=== PATIENT | male | born 1995 | race Caucasian/White ===

== ENCOUNTER 2019-04-23 15:51 | Emergency (ER) | payer OTHER ==
[~2019-04-23] VITALS: Ht 172.7 cm; Wt 74.1 kg
[2019-04-23] MEDS ORDERED: IBUPROFEN 800 MG TAB PO ONE (17:00)
[2019-04-23] MEDS ORDERED: NS 1,000 ML IV ONE (17:00)
[2019-04-23] MEDS ORDERED: methylPREDNISolone INJ 125 MG/2 ML VIAL (J2930) IV ONE (17:00)
[2019-04-23] MEDS ORDERED: ISOVUE-370 76% 100ML VIAL (Q9967) As Ordered ONE (17:22)
[2019-04-23 17:31] LABS: HEMATOCRIT 40.6 % (42.0-52.0); HEMOGLOBIN 13.9 g/dl (13.5-17.5); MEAN CORPUSCULAR HEMOGLOBIN 30.3 pg (27.0-33.0); MEAN CORPUSCULAR HGB CONC 34.2 g/dl (32.0-36.5); MEAN CORPUSCULAR VOLUME 88.5 fl (80.0-96.0); PLATELET COUNT, AUTOMATED 130 10^3/uL (150-450); RED BLOOD COUNT 4.59 10^6/uL (4.30-6.10); WHITE BLOOD COUNT 12.2 10^3/uL (4.0-10.0)
--- NOTE | 2019-04-23 17:48 | REPVR ---
PROCEDURE INFORMATION: Exam: CT Neck With Contrast Exam date and time: 04/23/2019 4:55 PM Age: 23 years old Clinical history: Other: Bilat swelling; Additional info: Large swelling to lawanda neck, muffled voice TECHNIQUE: Imaging protocol: Computed tomography images of the neck with intravenous contrast. Radiation optimization: All CT scans at this facility use at least one of these dose optimization techniques: automated exposure control; mA and/or kV adjustment per patient size (includes targeted exams where dose is matched to clinical indication); or iterative reconstruction. Contrast material: ISOVUE 370; Contrast volume: 75 ml; Contrast route: IV; COMPARISON: No relevant prior studies available. FINDINGS: Sinuses: Sinuses/nasal cavity: Inflammatory changes in the ethmoid sinuses, left greater than right. Inflammatory changes in the sphenoid sinuses. Soft tissue density demonstrated in the posterior aspect of the left nasal cavity may represent a polyp or boggy mucosa. Nasopharynx: Unremarkable. Oropharynx: Bilaterally enlarged and edematous tonsillar pillars consistent with adenopathy. Narrow hypopharyngeal airway secondary to bilateral compression from enlarged tonsillar pillars. No well-defined abscess demonstrated at this time. Hypopharynx: Unremarkable Larynx: Effacement right vallecula fossa. Otherwise unremarkable. Normal epiglottis. Retropharyngeal space: Unremarkable. Submandibular/Parotid glands: Bilateral hyperdense nodules demonstrated in both parotid glands measuring up to 12 mm on the right likely represent intraparotid adenopathy considering the other described adenopathy. Bilateral pleomorphic adenomas are a secondary consideration. Thyroid: Normal. No enlarged or calcified nodules. Lymph nodes: Hypertrophy of the adenoidal soft tissues consistent with adenopathy. Bilaterally enlarged lymph nodes measuring up to 1.8 cm in the right submandibular region and 1.4 cm and the left submandibular region. Submental lymphadenopathy measures up to 11 mm. Cervical chain lymphadenopathy demonstrated from level II to level IV measuring up to 12 mm on the left. Posterior triangle lymphadenopathy measures up to 11 mm on the left. Trachea: Visualized trachea is unremarkable. Lungs: Unremarkable as visualized. Bones/joints: Unremarkable. No acute fracture. Soft tissues: See Submandibular/parotid Glands Finding. IMPRESSION: 1. Inflammatory changes in the ethmoid sinuses, left greater than right. Inflammatory changes in the sphenoid sinuses. 2. Hypertrophy of the adenoidal soft tissues consistent with adenopathy. 3. Bilaterally enlarged and edematous tonsillar pillars consistent with adenopathy. 4. Narrow hypopharyngeal airway secondary to bilateral compression from enlarged tonsillar pillars. 5. Extensive bilateral lymphadenopathy as described above. Although possibly related to upper respiratory infection possibility of lymphoma and/or Hodgkin's disease not excluded. 6. Bilateral hyperdense nodules demonstrated in both parotid glands may represent intraparotid adenopathy considering the other described adenopathy. Bilateral pleomorphic adenomas are a secondary consideration. 7. Possible left nasal polyp. Electronically signed by: Samy Delatorre On 04/23/2019 17:48:35 PM
[2019-04-23 17:57] LABS: ATYPICAL LYMPH 16 % (0-5); BASOPHILS 1 % (0-1); LYMPHOCYTES 24 % (16-44); MONOCYTES 8 % (0-5); NEUTROPHILS 49 % (28-66); TOXIC VACUOLATION 1+
[2019-04-23 17:58] LABS: PLATELET ESTIMATE DECREASED (NORMAL)
[2019-04-23 18:22] LABS: ERYTHROCYTE SEDIMENTATION RATE 37 mm/hr (0-15)
[2019-04-23 18:30] VITALS: BP 119/57
[2019-04-23 18:37] LABS: MONO REFLEX EBV COMP POSITIVE (NEGATIVE)
[2019-04-23] MEDS ORDERED: CLEO300C2 PO (18:45)
[2019-04-23] MEDS ORDERED: PRED20TA PO (18:45)
[2019-04-23] MEDS ORDERED: CLINDAMYCIN 900 MG in IV 1 EA IV ONE (19:00)
--- NOTE | 2019-04-24 07:58 | ED PDOC ---
Post-Departure Follow-Up Patient called and notified of Monoscreen results as I was unable to discuss bef ore he was discharged. I Called myself this morning. 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 I discussed further signs/symptoms for when he should seek emergency treatment. Patient was agreeable and demonstrated understanding. Patient stated he was feeling better since discharge yesterday. WIL DUMONT PA-C Apr 24, 2019 07:58
--- NOTE | 2019-04-24 13:03 | ED PDOC ---
Post-Departure Follow-Up ft dayron bullock and dr beard faxed formal report of ct neck for fu Hung Landry MD Apr 24, 2019 13:02
== END 2019-04-23 20:13 | disposition home or self-care (01) ==
LOC: M ED 15:51
DX: J03.80 Acute tonsillitis due to other specified organisms (principal); L04.0 Acute lymphadenitis of face, head and neck
CPT/HCPCS: 70491; 80047; 85025; 85652; 86140; 86308; 96365; 96366; 96375; 99283; J2930; Q9967

== ENCOUNTER 2019-04-25 09:08 | Emergency (ER) | payer OTHER ==
[~2019-04-25] VITALS: Ht 172.7 cm; Wt 76.0 kg
[~2019-04-25 09:08] MED LIST: CLEO300C2 PO; PRED20TA PO
[2019-04-25] MEDS ORDERED: TYLETAB14 PO (09:42)
[2019-04-25] MEDS ORDERED: CEPALOZ8 MT (09:42)
[2019-04-25] MEDS ORDERED: diphenhydrAMINE 50 MG CAP PO ONE (10:45)
[2019-04-25] MEDS ORDERED: BENA25CA4 PO (11:45)
[2019-04-25] MEDS ORDERED: IBUP-1022 PO (11:45)
[2019-04-25 11:55] VITALS: BP 122/77
== END 2019-04-25 11:59 | disposition home or self-care (01) ==
LOC: M ED 09:08
DX: J35.1 Hypertrophy of tonsils (principal); B27.90 Infectious mononucleosis, unspecified without complication; T40.2X5A Adverse effect of other opioids, initial encounter

== ENCOUNTER 2019-10-16 17:01 | Emergency (ER) | payer OTHER ==
[~2019-10-16] VITALS: Ht 170.2 cm; Wt 82.6 kg
[~2019-10-16 17:01] MED LIST changes: +BENA25CA4 PO; +CEPALOZ8 MT; +IBUP-1022 PO; +TYLETAB14 PO
[2019-10-16] MEDS ORDERED: diphenhydrAMINE 50MG/ML VIAL (J1200) IV ONE (17:30)
[2019-10-16] MEDS ORDERED: methylPREDNISolone 125MG 2ML VIAL IV ONE (17:30)
[2019-10-16] MEDS ORDERED: ALBUTEROL 90 MCG/ACT 8GM HFA INHALER INH ONE (17:30)
[2019-10-16] MEDS ORDERED: FAMOTIDINE INJ 20MG/2ML VIAL (S0028 PER 1) IVP ONE (17:30)
[2019-10-16 17:47] LABS: BASO % 0.5 % (0.0-1.0); EOS # 0.4 10^3/uL (0.0-0.5); EOS % 6.4 % (0.0-3.0); HEMATOCRIT 45.3 % (42.0-52.0); LYMPH # 2.3 10^3/uL (1.5-5.0); LYMPH % 36.3 % (24.0-44.0); MEAN CORPUSCULAR HGB CONC 33.1 g/dl (32.0-36.5); MEAN CORPUSCULAR VOLUME 90.6 fl (80.0-96.0); MONO # 0.5 10^3/uL (0.0-0.8); NEUTROPHILS # 3.2 10^3/uL (1.5-8.5); NEUTROPHILS % 49.5 % (36.0-66.0); PLATELET COUNT, AUTOMATED 249 10^3/uL (150-450); WHITE BLOOD COUNT 6.4 10^3/uL (4.0-10.0)
[2019-10-16 18:07] LABS: ERYTHROCYTE SEDIMENTATION RATE 2 mm/hr (0-15)
[2019-10-16 18:11] LABS: ALBUMIN 4.1 GM/DL (3.2-5.2); ALT/SGPT 27 U/L (12-78); BILIRUBIN,DIRECT 0.1 MG/DL (0.0-0.2); BILIRUBIN,TOTAL 0.5 MG/DL (0.2-1.0); BLOOD UREA NITROGEN 15 MG/DL (7-18); C REACTIVE PROTEIN QUANTITATIV < 0.30 MG/DL (0.00-0.30); CALCIUM LEVEL 9.6 MG/DL (8.5-10.1); CARBON DIOXIDE LEVEL 29 MEQ/L (21-32); CHLORIDE LEVEL 105 MEQ/L (98-107); COMPLEMENT C4 19 MG/DL (10-40); CREATININE FOR GFR 1.04 MG/DL (0.70-1.30); GLOMERULAR FILTRATION RATE > 60.0 (>60); GLUCOSE, FASTING 91 MG/DL (70-100); POTASSIUM SERUM 3.8 MEQ/L (3.5-5.1); SODIUM LEVEL 142 MEQ/L (136-145); TOTAL PROTEIN 7.5 GM/DL (6.4-8.2)
[2019-10-16] MEDS ORDERED: BENA25CA4 PO (20:02)
[2019-10-16] MEDS ORDERED: PRED20TA PO (20:02)
[2019-10-16] MEDS ORDERED: diphenhydrAMINE 50MG CAP PO ONE (20:15)
[2019-10-16 20:19] VITALS: BP 119/67
[2019-10-21 14:12] LABS: TRYPTASE 6.3 ug/L (2.2-13.2)
== END 2019-10-16 20:23 | disposition home or self-care (01) ==
LOC: M ED 17:01
DX: T78.1XXA Other adverse food reactions, not elsewhere classified, initial encounter (principal); Y92.9 Unspecified place or not applicable; Y93.9 Activity, unspecified; F41.9 Anxiety disorder, unspecified
CPT/HCPCS: 80048; 80076; 83519; 85025; 85280; 85652; 86140; 86160; 86161; 94640; 94664; 94760; 96374; 96375; 99284; J1200; J2930

== ENCOUNTER 2020-07-27 12:43 | Inpatient (IN) | payer OTHER ==
[~2020-07-27] VITALS: Ht 165.1 cm; Wt 83.1 kg
[2020-07-27 14:15] LABS: HEMATOCRIT 45.3 % (42.0-52.0); MEAN CORPUSCULAR HEMOGLOBIN 30.4 pg (27.0-33.0); MEAN CORPUSCULAR HGB CONC 33.1 g/dl (32.0-36.5); MEAN CORPUSCULAR VOLUME 91.7 fl (80.0-96.0); PLATELET COUNT, AUTOMATED 218 10^3/uL (150-450); RED BLOOD COUNT 4.94 10^6/uL (4.30-6.10); WHITE BLOOD COUNT 6.3 10^3/uL (4.0-10.0)
[2020-07-27 14:46] LABS: AMPHETAMINES LEVEL URINE NEGATIVE (NEGATIVE); BARBITURATES URINE NEGATIVE (NEGATIVE); BENZODIAZEPINES URINE NEGATIVE (NEGATIVE); CANNABINOIDS URINE NEGATIVE (NEGATIVE); COCAINE METABOLITE URINE NEGATIVE (NEGATIVE); METHADONE URINE NEGATIVE (NEGATIVE); OPIATES URINE NEGATIVE (NEGATIVE); PHENCYCLIDINE URINE NEGATIVE (NEGATIVE)
[2020-07-27] MEDS ORDERED: LEXA1TAB PO (14:47)
[2020-07-27 14:53] LABS: ACETAMINOPHEN LEVEL < 2.0 UG/ML (10.0-30.0); ALT/SGPT 33 U/L (12-78); BILIRUBIN,DIRECT 0.1 MG/DL (0.0-0.2); BILIRUBIN,TOTAL 0.3 MG/DL (0.2-1.0); BLOOD UREA NITROGEN 13 MG/DL (7-18); CALCIUM LEVEL 8.8 MG/DL (8.5-10.1); CARBON DIOXIDE LEVEL 31 MEQ/L (21-32); CHLORIDE LEVEL 108 MEQ/L (98-107); CREATININE FOR GFR 0.96 MG/DL (0.70-1.30); ETHYL ALCOHOL (ETHANOL) 0.005 % (0.000-0.010); GLOMERULAR FILTRATION RATE > 60.0 (>60); GLUCOSE, FASTING 88 MG/DL (70-100); POTASSIUM SERUM 3.7 MEQ/L (3.5-5.1); SALICYLATE LEVEL < 1.7 MG/DL (5.0-30.0); SODIUM LEVEL 141 MEQ/L (136-145)
[2020-07-27] MEDS ORDERED: MOM 30ML SUSPENSION UDC PO PRN (15:30)
[2020-07-27] MEDS ORDERED: traZODone 50 MG TAB PO PRN (15:30)
[2020-07-27] MEDS ORDERED: ACETAMINOPHEN TAB 650MG DOSE (2X325MG) PO PRN (15:30)
[2020-07-27] MEDS ORDERED: MAALOX 30 ML SUSP *UDC PO PRN (15:30)
[2020-07-27 15:56] LABS: RSV AMPLIFICATION NEGATIVE (NEGATIVE)
[2020-07-27 16:31] VITALS: BP 139/75
[2020-07-28 06:33] VITALS: BP 138/65
[2020-07-28] MEDS: busPIRone 5 MG TAB PO SCH ×2 (11:46→20:11)
[2020-07-28] MEDS: ESCITALOPRAM OXALATE 10 MG TAB (LEXAPRO) PO SCH (11:47)
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
--- NOTE | 2020-07-28 14:23 | HPEPDOC ---
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 He presently states that he is no longer having suicidal thoughts. He has previously inflicted such self harm, but it was less severe. Patient feels stressed or overworked at work. Patient denies any chest pain. She was breath, nausea, vomiting, diarrhea, fevers or chills. At present, she feels well and has no physical complaints. Hospitalist was consulted for medical management. Lab work reviewed. No acute abnormalities noted. Vital signs reviewed mildly hypertensive this morning. Patient takes Lexapro at home for depression, otherwise no medications. PAST MEDICAL HISTORY: Mononucleosis PAST SURGICAL HISTORY: No prior surgical history SOCIAL HISTORY: Patient denies smoking Patient denies etoh use Patient denies illicit drug use FAMILY HISTORY: Mother has a history of diabetes and breast cancer in the family History of coronary artery disease on the father's side. ALLERGIES: Please see below. REVIEW OF SYSTEMS: A 10 point review of systems was conducted and relevant findings were noted in the HPI HOME MEDICATIONS: Please see below. PHYSICAL EXAMINATION: VITAL SIGNS: please see below General: NAD, comfortable HEENT: PERRLA, EOMI, sclerae clear Neck: supple, normal ROM, no JVD Respiratory: lungs CTAB, no wheeze, no rales, no crackles CVS: RRR, normal S1, S2, no murmurs Abdo: soft, no masses, no hepatosplenomegaly, BS+, no rebound tenderness Extremities: no edema, pulses 2+ MSK: no joint deformities, normal ROM Neuro: no focal neuro deficits, moving all 4 extremities, CN2-12 intact. Strength 5/5 in all 4 extremities. No nystagmus. Psych: calm, cooperative, AAO x 3 LABORATORY DATA: See below. MICROBIOLOGY: Please see below. ASSESSMENT: 25-year-old male with a history of depression and suicidal ideation admitted to behavioral health unit for suicidal ideation and self-harm. Hospitalist was consulted for medical comanagement. . PLAN: Suicidal ideation/self-harm: Per psychiatry. Hypertension: BP noted 130/65. Low-salt diet. Lifestyle modification. Obesity: BMI 30.5. Lifestyle modification, dietary counseling provided. Thank you for the consult. Please reconsult as necessary. Vital Signs Vital Signs Date Time Temp Pulse Resp B/P (MAP) Pulse Ox O2 Delivery O2 Flow Rate FiO2 07/28/20 06:33 97.7 75 12 138/65 (89) 98 Room Air Laboratory Data Labs 24H Laboratory Tests 2 07/27/20 15:11: Coronavirus (COVID-19)(PCR) NEGATIVE, Influenza Type A (RT-PCR) NEGATIVE, Influenza Type B (RT-PCR) NEGATIVE, Respiratory Syncytial Virus (PCR) NEGATIVE Home Medications Scheduled Escitalopram Oxalate (Lexapro) 10 Mg Tablet, 10 MG PO QHS Allergies Coded Allergies: No Known Allergies (Unverified , 04/23/19) A-FIB/CHADSVASC A-FIB History Current/History of A-Fib/PAF?: No Current PO Anticoag Therapy: No ANUJA AVENDAÑO MD Jul 28, 2020 14:23
[2020-07-28 16:44] VITALS: BP 124/63
[2020-07-29 06:30] VITALS: BP 150/65
[2020-07-29] MEDS: ESCITALOPRAM OXALATE 10 MG TAB (LEXAPRO) PO SCH (07:53)
[2020-07-29] MEDS: busPIRone 5 MG TAB PO SCH ×2 (07:53→20:22)
[2020-07-29] MEDS ORDERED: BUSP5TA PO (16:13)
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
[2020-07-29 16:38] VITALS: BP 131/70
[2020-07-30 06:13] VITALS: BP 111/53
[2020-07-30] MEDS: ESCITALOPRAM OXALATE 10 MG TAB (LEXAPRO) PO SCH (08:19)
[2020-07-30] MEDS: busPIRone 5 MG TAB PO SCH (08:19)
--- NOTE | 2020-07-30 13:43 | MHDSPDOC ---
[facility] Discharge Summary Discharge Summary DATE OF ADMISSION: Jul 27, 2020 at 15:27 DATE OF DISCHARGE: Jul 30, 2020 at 10:05 DISCHARGE DIAGNOSES: Major Depressive Disorder, Single Episode, Moderate Anxiety Disorder HISTORY: Patient is a 25 -year-old , male, who reports having an heated discussion with his Sergeant who he feels was basically calling his "stupid." He states that this triggered him to a time when his Grandmother continually berated him and his Autistic brother and was derogatory and unkind. Patient was very upset and he lacerated his arm and chest with a knife to "feel." He states that this occurred on Monday and he reported this to his NCO on Monday. He r eports that he had strong suicidal ideation to cut last summer but did not have a gesture or attempt. States, I suffer from depression and anxiety since he was young and it became more severe when I joined [employer] Over the years I have had more suicidal thoughts, images and nightmares when I am stressed." He states feeling embarrassed telling anyone. 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 Pt reports that he caused superficial cuts to his arm and chest on Monday. Pt reports that he was trying to "release" the pain, anger, and depression from his body by cutting. Pt also reports that he wasn't himself when he was cutting but that it made him feel in control. Pt reports that he had a "million" different ideas over the weekend to end his life such as hanging and cutting. Pt reports that he is a patient at [facility] but has not been there for a while and his next appt is August 17. Pt reports that he has been taking an anti-depressant since 03/2020, that he believes was working but feels that the last few weeks it has not been working. Pt reports that he was doing well but for the last 1.5 months he has had a hard time focusing and feels like the unit is against him. Pt stated "I hate myself, hate being here." Pt reports a previous "cutting" incident in November 2019 when he superficially cut his wrist due to his depression. Pt denies HI and AH/VH but admits to SI and is unable to contract for safety. VITAL SIGNS: See below. CONSULTANTS INVOLVED: : See Medical H + P by Hospitalist TREATMENT AND PROGRESS ON THE UNIT: Patient was admitted to the [facility] on a 9.39 legal status he was afforded the following treatment modalities: 1) Individual Therapy 2) Group Therapy 3) Medication Management 4) Milieu Therapy 5) Safe Environment HOSPITAL COURSE: ASSESSMENT: Patient significant less depression and anxiety. States that he is hopeful that he can return to the [employer] and finish the rest of his contract without his being med-boarded or transferred. 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 He had reported only a few friends who are supportive. We discussed being open to allowing people to know how he has been doing and to ask for what he needs from those friends whether is solitude of kinship/companionship. Discussed adding a few more coping skills i.e. boxing, more exercise, traveling within the State to allow him to decompress from his work stress. Patient had been very social with other peers, playing chess, cooperative in the milieu, attended groups and was adherent to treatment modalities. Patient did not endorse suicidal or homicidal thoughts while on the unit, but reports continued fear of the stressors that brought him to the hospital. He does not feel that he will be able to return to the same environment. DISCHARGE ASSESSMENT: In today's interview, patient is alert and oriented, pts dress is appropriate. Hygiene and grooming is well-kempt. Smiles on approach and is pleasant and engaged in the interview. Denies depression and anxiety. Denies suicidal and homicidal ideation, planning or intent. Denies and is not observed with andrews, psychotic symptoms of delusions, bizarre thinking, obsessions, paranoia, ruminations illogical thoughts, flight of ideas or having poor insight and judgement. Patient has normal mentation, declines further hospitalization on a voluntary status and meets criteria for discharge today. Patient encouraged to return to hospital if his symptoms worsen or change and encouraged to call unit if he/she/they needs to speak to provider for questions regarding medications or care. 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 General Appearance: well groomed, appears stated age, hospital scrubs/clothing Build: average, other (muscular build) Demeanor: average Eye Contact: average Activity: average Behavior: cooperative Speech: clear, reg/rate,rhythm,volume Mood: depressed, anxious Affect: constricted Thought Process: logical/linear Thought Content (Delusions): none reported Thought Content (Aggressive): none reported Perception (Hallucinations): none reported Perception (Other): none reported Cognition (Impairment of): none reported Cognition(Intelligence Est.): above average Oriented: Awake, Alert, Oriented times three Insight: good Judgment: Good Psychosis: Denies MEDICATIONS ON DISCHARGE: See Medication Reconciliation PLAN/FOLLOWUP ARRANGEMENTS: Patient is discharged to [facility] and will follow up with [facility] The amount of time spent in the coordination of care for this patient was approximately 25 minutes. ETOH/Disorder Med Rx ETOH/DRUG DISORDER RX: N/A Vital Signs/I&Os Vital Signs Date Time Temp Pulse Resp B/P (MAP) Pulse Ox O2 Delivery O2 Flow Rate FiO2 07/30/20 06:13 98.2 70 16 111/53 (72) 100 Room Air Medications Scheduled Buspirone HCl (Buspirone HCl) 5 Mg Tablet, 5 MG PO BID for Anxiety, #14 Escitalopram Oxalate (Lexapro) 10 Mg Tablet, 10 MG PO QHS, (Reported) Allergies Coded Allergies: No Known Allergies (Unverified , 04/23/19) MIRACLE WHITE NP Jul 30, 2020 13:25
== END 2020-07-30 10:05 | disposition home or self-care (01) | DRG 885 ==
LOC: M ED 12:43 → M ED INP 15:27 → M PSY 16:20
PROVIDERS: ADMIT Psychiatry & Neurology Child & Adolescent Psychiatry; ATTEND Psychiatry & Neurology Psychiatry
DX: F32.1 Major depressive disorder, single episode, moderate (principal); R45.851 Suicidal ideations; F41.9 Anxiety disorder, unspecified; E66.9 Obesity, unspecified; Z68.30 Body mass index [BMI] 30.0-30.9, adult